=== PATIENT | male | born 1955 ===

== ENCOUNTER 2018-10-09 17:45 | Outpatient (REF) | payer MEDICARE, SELFPAY ==
[2018-10-09 21:31] LABS: ALT 35 U/L (12-78); AST 20 U/L (15-37); Albumin 3.9 g/dL (3.4-5.0); Alkaline Phosphatase 43 U/L (46-116); Anion Gap 12.2 mmol/L (3-11); BUN 23 mg/dL (7-18); Bilirubin, Total 0.5 mg/dL (0.2-1.0); CO2 23.8 mmol/L (21.0-32.0); CREATININE 0.91 mg/dL (0.70-1.30); Chloride 104 mmol/L (98-107); Glucose 84 mg/dL (70-100); Potassium 4.4 mmol/L (3.5-5.1); Sodium 140 mmol/L (136-145); Total Protein 7.4 g/dL (6.4-8.2)
[2018-10-09 21:40] LABS: HCT 49.2 % (40.0-50.0); HGB 16.7 g/dL (13.5-17.5); Mean Corp. HGB Concentration 33.9 g/dL (32.0-36.0); Mean Corpuscular Hemoglobin 31.8 pg (27.0-33.0); Mean Corpuscular Volume 93.7 fL (80-95); Mean Platelet Volume 11.3 fL (8.0-11.0); Platelet Count 226 x1000/uL (130-400); RBC 5.25 m/cumm (4.50-6.00); RBC Distribution Width 14.1 % (11.8-14.1); White Blood Cell Count 7.48 k/cumm (4.4-10.8)
== END 2018-10-09 18:05 ==
LOC: NCHCN 17:45
PROVIDERS: PCP Family Medicine; Visit Provider Registered Nurse
DX: G89.29 Other chronic pain (principal); M19.90 Unspecified osteoarthritis, unspecified site; M17.12 Unilateral primary osteoarthritis, left knee; M25.512 Pain in left shoulder; M19.011 Primary osteoarthritis, right shoulder
CPT/HCPCS: 80053; 85027

== ENCOUNTER 2019-04-03 08:58 | Outpatient (REF) | payer MEDICARE, SELFPAY ==
[2019-04-03 21:58] LABS: Calculated LDL 159 mg/dL; Cholesterol 250 mg/dL (50-200); HDL Cholesterol 29 mg/dL (40-60); Triglyceride 310 mg/dL (30-150)
== END 2019-04-03 09:18 ==
LOC: NCHCO 08:58
PROVIDERS: PCP Family Medicine; Visit Provider Registered Nurse
DX: E78.5 Hyperlipidemia, unspecified (principal)
CPT/HCPCS: 80061